=== PATIENT | male | born 1970 | race Caucasian/White ===

== ENCOUNTER 2023-09-19 14:58 | Inpatient (IN) | payer OTHER ==
[2023-09-19 15:50] VITALS: BMI 29.9
[2023-09-19] MEDS ORDERED: NALOXONE HCL 0.4 MG/ML VIAL IM PRN (17:30)
[2023-09-19] MEDS ORDERED: guaiFENesin 600 MG TABLET.ER (FP) PO PRN (17:30)
[2023-09-19] MEDS ORDERED: LOPERAMIDE HCL 2 MG CAPSULE PO PRN (17:30)
[2023-09-19] MEDS ORDERED: NALOXONE (NARCAN) HCL 4 MG/0.1 ML SPRAY NS PRN (17:30)
[2023-09-19] MEDS ORDERED: NICOTINE POLACRILEX 2 MG GUM BUC PRN (17:30)
[2023-09-19] MEDS ORDERED: POLYETHYLENE GLYCOL (HEALTHYLAX) 3350 17 GM PACKET PO PRN (17:30)
[2023-09-19] MEDS ORDERED: BENZONATATE 200 MG CAPSULE PO PRN (17:30)
[2023-09-19] MEDS ORDERED: NICOTINE POLACRILEX 2 MG LOZENGE BC PRN (17:30)
[2023-09-19] MEDS ORDERED: MAGNESIUM HYDROX 2400MG/30ML ORAL SUSPENSION 30 ML CUP PO PRN (17:30)
[2023-09-19] MEDS ORDERED: MAG HYDROX/AL HYDROX/SIMETH 30 ML UNIT-DOSE CUP PO PRN (17:30)
[2023-09-19] MEDS: BUPRENORPHINE/NALOXONE 2 MG/0.5 MG FILM PACKET SL ONE (19:45)
[2023-09-19] MEDS: MELATONIN 5 MG TABLETS PO SCH (21:32)
[2023-09-19] MEDS: THIAMINE 100 MG TABLET PO SCH (21:32)
[2023-09-19] MEDS: IBUPROFEN 600 MG TABLET (FP) PO PRN (21:35)
[2023-09-19] MEDS: hydrOXYzine PAMOATE 25 MG CAPSULE (FP) PO PRN (21:35)
[2023-09-19] MEDS: TUBERCULIN PPD 5 TU/0.1ML SYRINGE (IN PATIENT USE ONLY) ID ONE (22:21)
[2023-09-20] MEDS: PRENATAL VITAMINS W/ FOLIC ACID TABLET (FP) PO SCH (09:58)
[2023-09-20] MEDS: BUPRENORPHINE/NALOXONE 2 MG/0.5 MG FILM PACKET SL SCH (09:58)
[2023-09-20] MEDS: LOSARTAN POTASSIUM 50 MG TABLET PO SCH (10:57)
[2023-09-20 12:20] LABS: URINE APPEARANCE CLOUDY; URINE BILIRUBIN NEGATIVE (NEGATIVE); URINE COLOR YELLOW; URINE GLUCOSE (UA) NEGATIVE (NEGATIVE); URINE KETONE NEGATIVE (NEGATIVE); URINE LEUK ESTERASE NEGATIVE (NEGATIVE); URINE NITRITE NEGATIVE (NEGATIVE); URINE PROTEIN NEGATIVE (NEGATIVE); URINE UROBILINOGEN 0.2 mg/dL (0.2-1.0)
[2023-09-20 12:21] LABS: HEMATOCRIT 42.3 % (35.4-49); HEMOGLOBIN 13.8 GM/dL (11.7-16.9); MCH 27.5 pg (25.7-33.7); MCHC 32.7 g/dl (32.0-35.9); MEAN CELL VOLUME 84.1 fl (80-96); MEAN PLT VOLUME 7.7 fl (7.5-11.1); PLATELET COUNT 518 10^3/uL (134-434); RBC 5.04 M/mm3 (4.00-5.60); RDW 14.7 % (11.9-15.9); WHITE BLOOD COUNT 10.1 K/mm3 (4.0-10.0)
[2023-09-20 12:55] LABS: POTASSIUM 5.1 mmol/L (3.5-5.1)
[2023-09-20 12:58] LABS: BLOOD UREA NITROGEN 25.7 mg/dL (7-18); CALCIUM 9.7 mg/dL (8.5-10.1)
[2023-09-20 12:59] LABS: ALBUMIN 3.4 g/dl (3.4-5.0)
[2023-09-20 13:01] LABS: CREATININE 0.9 mg/dL (0.55-1.3)
[2023-09-20 13:03] LABS: BILIRUBIN,TOTAL 0.5 mg/dL (0.2-1)
[2023-09-20 13:04] LABS: TOT PROT 8.7 g/dl (6.4-8.2)
[2023-09-20] MEDS ORDERED: ONDANSETRON *ODT* 4 MG TABLET SL PRN (15:18)
[2023-09-20] MEDS ORDERED: DICYCLOMINE HCL 10 MG CAPSULE PO PRN (15:18)
[2023-09-20] MEDS ORDERED: BISMUTH SUBSALICYLATE 262 MG/15 ML BTL PO PRN (15:18)
[2023-09-20] MEDS ORDERED: AMMONIUM LACTATE 12% LOTION 225 GM BOTTLE TP PRN (15:18)
[2023-09-20] MEDS: BUPRENORPHINE/NALOXONE 4 MG/1 MG FILM PACKET SL SCH (21:00)
[2023-09-25] MEDS: P-EPHED 60MG/TRIPROLIDI 2.5MG TABLET PO PRN (09:25)
[2023-09-25] MEDS: ACETAMINOPHEN 325 MG TABLET (FP) PO PRN (18:57)
[2023-09-25] MEDS: BENZOCAINE/MENTHOL (CHLORASEPTIC ) LOZENGE MM PRN (18:58)
[2023-09-27] MEDS: METHOCARBAMOL 500 MG TABLET PO SCH (10:12)
[2023-10-03] MEDS ORDERED: BENZOCAINE 20 % GEL TUBE MM PRN (17:17)
[2023-10-03] MEDS: LORATADINE 10 MG TABLET PO SCH (17:43)
[2023-10-03] MEDS: AMOX TR/POT CLAV 875MG/125MG TABLETS (FP) PO SCH (17:43)
[2023-10-03] MEDS: METHOCARBAMOL 500 MG TABLET PO SCH (21:05)
[2023-10-03] MEDS: IBUPROFEN 400 MG TABLET (FP) PO PRN (21:05)
[2023-10-03] MEDS ORDERED: METHOCARBAMOL 500 MG TABLET PO SCH (22:00)
[2023-10-07] MEDS: FUROSEMIDE 40 MG TABLET (FP) PO SCH (16:33)
[2023-10-10 06:34] VITALS: TEMP 97.7
[2023-10-10 08:58] VITALS: BP 130/67; PULSE 92; RESP 18
== END 2023-10-10 09:31 | disposition home or self-care (01) | DRG 895 ==
LOC: YASAS 14:58 → Y3W 18:47
PROVIDERS: ADMIT Allergy & Immunology; ATTEND Psychiatry & Neurology Pain Medicine
PROC: HZ42ZZZ Group Counseling for Substance Abuse Treatment, Cognitive-Behavioral (ICD-10-PCS; principal; 2023-09-19)
DX: F11.20 Opioid dependence, uncomplicated (principal); F14.20 Cocaine dependence, uncomplicated; F17.210 Nicotine dependence, cigarettes, uncomplicated; F41.9 Anxiety disorder, unspecified; G62.9 Polyneuropathy, unspecified; I10 Essential (primary) hypertension; K04.7 Periapical abscess without sinus; Z99.89 Dependence on other enabling machines and devices; Z88.7 Allergy status to serum and vaccine
CPT/HCPCS: 36415; 71046-TC-FY; 80053; 80305; 81003; 83036; 85027; 86780; 93005; 93010